=== PATIENT | female | born 1935 | race Caucasian/White ===

== ENCOUNTER → 2017-01-03 | Outpatient (CLI) | payer MEDICARE, OTHER ==
[~2017-01-03] MED LIST: MOBIC7.5 MG; MULTIVITAMIN1 CTB PO; OXYBUTYNIN CHLOR5 MG PO; VICODIN 5/500 505 MG PO
[2017-01-03 11:13] LABS: HEMATOCRIT 37.8 % (37.0-47.0); HEMOGLOBIN 12.7 g/dl (12.0-16.0); MEAN CELL VOLUME 97.9 fl (81.0-99.0); MEAN CORPUSCULAR HGB 32.9 pg (27.0-31.0); MEAN CORPUSCULAR HGB CONC 33.6 g/dl (33.0-37.0); MEAN PLATELET VOLUME 8.8 fl (9.6-12.3); RED BLOOD COUNT 3.86 10*6/uL (4.10-5.10); RED CELL DISTRI WIDTH 12.5 % (0-14.5); WHITE BLOOD COUNT 5.9 10*3/uL (4.8-10.8)
[2017-01-03 11:38] LABS: ALBUMIN 3.5 gm/dl (3.1-4.5); ALKALINE PHOSPHATASE 64 U/L (45-117); BILIRUBIN, TOTAL 0.3 mg/dl (0.2-1.0); BUN 28 mg/dl (7-24); CARBON DIOXIDE 31 mmol/L (21-32); CHLORIDE 102 mmol/L (98-107); CHOLESTEROL 185 mg/dL (<200); EST GLOM FILT AFRICAN AMERICAN > 60 ml/min; GLUCOSE 90 mg/dL (65-99); HDL CHOLESTEROL 80 mg/dl (40-60); LDL CHOLESTEROL 86 mg/dL (9-159); POTASSIUM 4.6 mmol/L (3.5-5.1); SGOT/AST 25 IU/L (3-35); SGPT/ALT 21 U/L (12-78); SODIUM 139 mmol/L (136-145); TOTAL PROTEIN 7.3 gm/dL (6.4-8.2); TRIGLYCERIDES 96 mg/dl (<150); VLDL CHOLESTEROL 19 mg/dL (6-40)
== END | disposition home or self-care (01) ==
LOC: LAB 10:45
PROVIDERS: Family Medicine
DX: E78.00 Pure hypercholesterolemia, unspecified (principal); E55.9 Vitamin D deficiency, unspecified; M25.511 Pain in right shoulder

== ENCOUNTER → 2017-02-19 | Outpatient (CLI) | payer MEDICARE, OTHER | END | disposition home or self-care (01) | LOC: MRI 07:59 | DX: R90.82 White matter disease, unspecified (principal); Z86.73 Personal history of transient ischemic attack (TIA), and cerebral infarction without residual deficits ==

== ENCOUNTER → 2017-09-11 | Outpatient (CLI) | payer MEDICARE, OTHER | END | disposition home or self-care (01) | LOC: WOUNDCARE 02:11 | DX: S81.851A Open bite, right lower leg, initial encounter (principal); W54.0XXA Bitten by dog, initial encounter; Y93.89 Activity, other specified; Y92.89 Other specified places as the place of occurrence of the external cause; Y99.8 Other external cause status ==

== ENCOUNTER → 2017-09-18 | Outpatient (CLI) | payer MEDICARE, OTHER | END | disposition home or self-care (01) | LOC: WOUNDCARE 00:44 | DX: S81.851A Open bite, right lower leg, initial encounter (principal); W54.0XXA Bitten by dog, initial encounter; Y93.89 Activity, other specified; Y92.89 Other specified places as the place of occurrence of the external cause; Y99.8 Other external cause status ==

== ENCOUNTER → 2017-09-25 | Outpatient (CLI) | payer MEDICARE, OTHER | END | disposition home or self-care (01) | LOC: WOUNDCARE 02:01 | DX: S81.851A Open bite, right lower leg, initial encounter (principal); W54.0XXA Bitten by dog, initial encounter; Y93.89 Activity, other specified; Y92.89 Other specified places as the place of occurrence of the external cause; Y99.8 Other external cause status ==

== ENCOUNTER → 2017-10-02 | Outpatient (CLI) | payer MEDICARE, OTHER | END | disposition home or self-care (01) | LOC: WOUNDCARE 02:59 | DX: S81.851D Open bite, right lower leg, subsequent encounter (principal); W54.0XXD Bitten by dog, subsequent encounter ==

== ENCOUNTER → 2017-10-09 | Outpatient (CLI) | payer MEDICARE, OTHER | END | disposition home or self-care (01) | LOC: WOUNDCARE 02:42 | DX: S81.851D Open bite, right lower leg, subsequent encounter (principal); W54.0XXD Bitten by dog, subsequent encounter ==

== ENCOUNTER → 2017-10-20 | Outpatient (CLI) | payer MEDICARE, OTHER | END | disposition home or self-care (01) | LOC: WOUNDCARE 08:27 | DX: L97.812 Non-pressure chronic ulcer of other part of right lower leg with fat layer exposed (principal) ==

== ENCOUNTER → 2017-10-30 | Outpatient (CLI) | payer MEDICARE, OTHER | END | disposition home or self-care (01) | LOC: WOUNDCARE 01:43 | DX: S81.851D Open bite, right lower leg, subsequent encounter (principal); G35 Multiple sclerosis; W54.0XXD Bitten by dog, subsequent encounter ==

== ENCOUNTER → 2017-11-25 | Outpatient (CLI) | payer MEDICARE, OTHER ==
[2017-11-25 10:21] LABS: HEMATOCRIT 37.1 % (37.0-47.0); HEMOGLOBIN 12.3 g/dl (12.0-16.0); MEAN CORPUSCULAR HGB 33.2 pg (27.0-31.0); MEAN CORPUSCULAR HGB CONC 33.2 g/dl (33.0-37.0); MEAN PLATELET VOLUME 8.8 fl (9.6-12.3); RED BLOOD COUNT 3.71 10*6/uL (4.10-5.10); RED CELL DISTRI WIDTH 12.6 % (0-14.5); WHITE BLOOD COUNT 4.2 10*3/uL (4.8-10.8)
[2017-11-25 10:51] LABS: ACT PARTIAL THROMBO TIME 24.8 SECONDS (20.8-31.5); ALBUMIN 3.7 gm/dl (3.1-4.5); ALKALINE PHOSPHATASE 76 U/L (45-117); BUN 18 mg/dl (7-24); CHLORIDE 106 mmol/L (98-107); CHOLESTEROL 175 mg/dL (<200); CREATININE 0.64 mg/dL (0.55-1.02); HDL CHOLESTEROL 81 mg/dl (40-60); INTERNATIONAL NORM RATIO 0.9 (2.0-3.5); LDL CHOLESTEROL 81 mg/dL (9-159); POTASSIUM 3.9 mmol/L (3.5-5.1); SGOT/AST 17 IU/L (3-35); SGPT/ALT 20 U/L (12-78); SODIUM 143 mmol/L (136-145); TOTAL PROTEIN 7.4 gm/dL (6.4-8.2); TRIGLYCERIDES 64 mg/dl (<150); VLDL CHOLESTEROL 13 mg/dL (6-40)
[2017-11-25 11:12] LABS: VITAMIN D, 25-HYDROXY 44.6 ng/mL (30-100)
[2017-11-27 06:15] LABS: HEPATITIS B SURFACE AG Negative (Negative); HEPATITIS C VIRUS ANTIBODY <0.1 s/co (0.0-0.9)
== END | disposition home or self-care (01) ==
LOC: LAB 09:49
PROVIDERS: Family Medicine
DX: Z01.818 Encounter for other preprocedural examination (principal); Z13.818 Encounter for screening for other digestive system disorders; R53.83 Other fatigue; E55.9 Vitamin D deficiency, unspecified; G35 Multiple sclerosis; Z79.899 Other long term (current) drug therapy; Z79.01 Long term (current) use of anticoagulants

== ENCOUNTER → 2019-04-28 | Outpatient (CLI) | payer MEDICARE, OTHER ==
[2019-04-28 14:58] LABS: HEMATOCRIT 36.5 % (37.0-47.0); HEMOGLOBIN 12.4 g/dl (12.0-16.0); MEAN CELL VOLUME 103.7 fl (81.0-99.0); MEAN CORPUSCULAR HGB 35.2 pg (27.0-31.0); MEAN PLATELET VOLUME 9.1 fl (9.6-12.3); RED BLOOD COUNT 3.52 10*6/uL (4.10-5.10); RED CELL DISTRI WIDTH 12.7 % (0-14.5)
[2019-04-28 15:15] LABS: ALBUMIN 3.7 gm/dl (3.1-4.5); ALKALINE PHOSPHATASE 65 U/L (45-117); BUN 28 mg/dl (7-24); CHLORIDE 107 mmol/L (98-107); CHOLESTEROL 176 mg/dL (<200); CREATININE 0.66 mg/dL (0.55-1.02); HDL CHOLESTEROL 80 mg/dl (40-60); LDL CHOLESTEROL 74 mg/dL (9-159); POTASSIUM 4.2 mmol/L (3.5-5.1); SGOT/AST 24 IU/L (3-35); SGPT/ALT 23 U/L (12-78); SODIUM 141 mmol/L (136-145); TOTAL PROTEIN 7.5 gm/dL (6.4-8.2); TRIGLYCERIDES 109 mg/dl (<150); VLDL CHOLESTEROL 22 mg/dL (6-40)
== END | disposition home or self-care (01) ==
LOC: LAB 14:34
PROVIDERS: Family Medicine
DX: E55.9 Vitamin D deficiency, unspecified (principal); E78.00 Pure hypercholesterolemia, unspecified

== ENCOUNTER → 2020-02-01 | Outpatient (CLI) | payer MEDICARE, OTHER ==
[2020-02-02 12:09] LABS: RHEUMATOID ARTHRITIS FACTOR <10.0 IU/mL (0.0-13.9)
== END | disposition home or self-care (01) ==
LOC: LAB 12:29
PROVIDERS: ATTEND Family Medicine
DX: M25.50 Pain in unspecified joint (principal); M79.10 Myalgia, unspecified site

== ENCOUNTER → 2020-07-18 | Outpatient (CLI) | payer MEDICARE | END | disposition home or self-care (01) | LOC: RESCLI 03:17 | PROVIDERS: ATTEND Internal Medicine Nephrology | DX: L90.0 Lichen sclerosus et atrophicus (principal); M81.0 Age-related osteoporosis without current pathological fracture; M19.90 Unspecified osteoarthritis, unspecified site; Z76.89 Persons encountering health services in other specified circumstances; Z79.899 Other long term (current) drug therapy; Z98.890 Other specified postprocedural states; Z88.8 Allergy status to other drugs, medicaments and biological substances ==

== ENCOUNTER → 2020-08-10 | Outpatient (CLI) | payer MEDICARE, OTHER ==
[2020-08-10 11:42] LABS: BASO % 0.3 % (0.0-1.0); EOS % 0.3 % (1.0-4.0); LYMPH # 1.1 10*3/uL (1.3-4.4); LYMPH % 32.2 % (27.0-41.0); MEAN CELL VOLUME 103.9 fl (81.0-99.0); MEAN CORPUSCULAR HGB 34.3 pg (27.0-31.0); MONO # 0.3 10*3/uL (0.1-1.0); MONO % 10.1 % (3.0-9.0); NEUT # 1.9 10*3/uL (2.3-7.9); NEUT % 56.8 % (47.0-73.0); PLATELET COUNT AUTOMATED 110 10*3/uL (130-400); RED BLOOD COUNT 3.56 10*6/uL (4.10-5.10); RED CELL DISTRI WIDTH 12.7 % (0-14.5); WHITE BLOOD COUNT 3.4 10*3/uL (4.8-10.8)
[2020-08-10 12:11] LABS: ALBUMIN 3.9 gm/dl (3.1-4.5); ALKALINE PHOSPHATASE 49 U/L (45-117); BILIRUBIN, DIRECT 0.2 mg/dL (0.0-0.2); BUN 22 mg/dl (7-24); CREATININE 0.76 mg/dL (0.55-1.02); SGOT/AST 18 IU/L (3-35); SGPT/ALT 20 U/L (12-78); TOTAL PROTEIN 7.6 gm/dL (6.4-8.2)
== END | disposition home or self-care (01) ==
LOC: LAB 11:03
PROVIDERS: ATTEND Dermatology
DX: Z51.81 Encounter for therapeutic drug level monitoring (principal)

== ENCOUNTER → 2020-09-26 | Outpatient (CLI) | payer MEDICARE, OTHER ==
[2020-09-26 12:08] LABS: BASO % 0.3 % (0.0-1.0); EOS % 0.9 % (1.0-4.0); HEMATOCRIT 34.7 % (37.0-47.0); LYMPH # 1.1 10*3/uL (1.3-4.4); LYMPH % 34.2 % (27.0-41.0); MEAN CELL VOLUME 104.2 fl (81.0-99.0); MEAN CORPUSCULAR HGB 34.5 pg (27.0-31.0); MEAN CORPUSCULAR HGB CONC 33.1 g/dl (33.0-37.0); MEAN PLATELET VOLUME 8.6 fl (9.6-12.3); MONO # 0.4 10*3/uL (0.1-1.0); MONO % 11.1 % (3.0-9.0); NEUT # 1.7 10*3/uL (2.3-7.9); NEUT % 53.2 % (47.0-73.0); PLATELET COUNT AUTOMATED 101 10*3/uL (130-400); RED BLOOD COUNT 3.33 10*6/uL (4.10-5.10); RED CELL DISTRI WIDTH 12.9 % (0-14.5); WHITE BLOOD COUNT 3.2 10*3/uL (4.8-10.8)
== END | disposition home or self-care (01) ==
LOC: RESCLI 03:30 → LAB 03:30 → RESCLI 07:08
PROVIDERS: ATTEND Internal Medicine
DX: D69.6 Thrombocytopenia, unspecified (principal)

== ENCOUNTER → 2020-10-10 | Outpatient (CLI) | payer MEDICARE, OTHER ==
[2020-10-10 14:28] LABS: ALBUMIN 3.9 gm/dl (3.1-4.5); ALKALINE PHOSPHATASE 53 U/L (45-117); BUN 19 mg/dl (7-24); CHLORIDE 107 mmol/L (98-107); CREATININE 0.63 mg/dL (0.55-1.02); SGOT/AST 24 IU/L (3-35); SGPT/ALT 22 U/L (12-78); SODIUM 139 mmol/L (136-145); TOTAL PROTEIN 7.4 gm/dL (6.4-8.2)
== END | disposition home or self-care (01) ==
LOC: LAB 13:29
PROVIDERS: ATTEND Nurse Practitioner Family
DX: T14.8XXA Other injury of unspecified body region, initial encounter (principal); W57.XXXA Bitten or stung by nonvenomous insect and other nonvenomous arthropods, initial encounter

== ENCOUNTER → 2020-10-29 | Outpatient (CLI) | payer MEDICARE, OTHER ==
[~2020-10-29] MED LIST changes: +ATARAX,VISTARIL10 MG PO
[2020-10-29 09:37] VITALS: BP 129/72
== END | disposition home or self-care (01) ==
LOC: INJECTION 09:00
PROVIDERS: ATTEND Internal Medicine
DX: M81.0 Age-related osteoporosis without current pathological fracture (principal); M19.90 Unspecified osteoarthritis, unspecified site

== ENCOUNTER → 2021-05-02 | Outpatient (CLI) | payer MEDICARE, OTHER ==
[~2021-05-02] MED LIST changes: +CALCIUM500 M1 PO; +PLAQUENIL200 MG PO; +VITAMIN B COMP1 EAC1 PO; +VITAMIN D325 MCG PO
== END | disposition home or self-care (01) ==
LOC: INJECTION 01:06
PROVIDERS: ATTEND Student in an Organized Health Care Education/Training Program
DX: M81.0 Age-related osteoporosis without current pathological fracture (principal)

== ENCOUNTER → 2021-10-29 | Outpatient (CLI) | payer MEDICARE, OTHER | LOC: RAD 12:43 | PROVIDERS: ATTEND Nurse Practitioner Family | DX: J98.11 Atelectasis (principal); R06.2 Wheezing; R09.89 Other specified symptoms and signs involving the circulatory and respiratory systems ==

== ENCOUNTER → 2022-03-31 | Outpatient (CLI) | payer MEDICARE, OTHER ==
[2022-03-31 15:28] LABS: BASO % 0.2 % (0.0-1.0); EOS # 0.1 10*3/uL (0.0-0.4); EOS % 1.2 % (1.0-4.0); HEMATOCRIT 36.7 % (37.0-47.0); LYMPH # 0.9 10*3/uL (1.3-4.4); LYMPH % 21.1 % (27.0-41.0); MEAN CELL VOLUME 103.4 fl (81.0-99.0); MEAN CORPUSCULAR HGB 33.5 pg (27.0-31.0); MEAN CORPUSCULAR HGB CONC 32.4 g/dl (33.0-37.0); MEAN PLATELET VOLUME 8.8 fl (9.6-12.3); MONO # 0.4 10*3/uL (0.1-1.0); MONO % 9.3 % (3.0-9.0); NEUT # 2.8 10*3/uL (2.3-7.9); PLATELET COUNT AUTOMATED 158 10*3/uL (130-400); RED BLOOD COUNT 3.55 10*6/uL (4.10-5.10); RED CELL DISTRI WIDTH 12.9 % (0-14.5); WHITE BLOOD COUNT 4.1 10*3/uL (4.8-10.8)
[2022-03-31 15:34] LABS: BILIRUBIN Negative (Negative); BLOOD Negative (Negative); CLARITY Clear (Clear); COLOR Yellow (Yellow); GLUCOSE Negative (Negative); KETONE Negative (Negative); LEUKO ESTERASE Trace (Negative); NITRITE Negative (Negative); PH 7.5 (4.5-8.0); SPECIFIC GRAVITY <= 1.005 (1.001-1.030); UROBILINOGEN 0.2 E.U./dl (0.0-1.0)
[2022-03-31 15:46] LABS: BUN 18 mg/dl (7-24); CHLORIDE 104 mmol/L (98-107); POTASSIUM 3.7 mmol/L (3.5-5.1); SGOT/AST 19 IU/L (3-35); SGPT/ALT 23 U/L (12-78); SODIUM 140 mmol/L (136-145)
[2022-03-31 15:51] LABS: ALKALINE PHOSPHATASE 96 U/L (45-117); TOTAL PROTEIN 7.7 gm/dL (6.4-8.2)
[2022-03-31 16:16] LABS: BACTERIA TRACE
== END | disposition home or self-care (01) ==
LOC: LAB 12:54 → US 13:00
PROVIDERS: ATTEND Urology
DX: N28.89 Other specified disorders of kidney and ureter (principal); I10 Essential (primary) hypertension; N32.3 Diverticulum of bladder; N28.1 Cyst of kidney, acquired; N39.0 Urinary tract infection, site not specified; M54.50 Low back pain, unspecified

== ENCOUNTER → 2022-04-29 | Outpatient (CLI) | payer MEDICARE, OTHER ==
[2022-04-29 11:44] LABS: ACT PARTIAL THROMBO TIME 26.2 SECONDS (20.0-32.1); INTERNATIONAL NORM RATIO 0.9 (2.0-3.5)
== END | disposition home or self-care (01) ==
LOC: LAB 10:41
PROVIDERS: ATTEND Urology
DX: Z01.818 Encounter for other preprocedural examination (principal); S22.000A Wedge compression fracture of unspecified thoracic vertebra, initial encounter for closed fracture; I49.1 Atrial premature depolarization; I25.10 Atherosclerotic heart disease of native coronary artery without angina pectoris; X58.XXXA Exposure to other specified factors, initial encounter; Y93.89 Activity, other specified; Y92.89 Other specified places as the place of occurrence of the external cause; Y99.8 Other external cause status

== ENCOUNTER → 2022-07-09 | Outpatient (CLI) | payer MEDICARE, OTHER ==
[~2022-07-09] MED LIST changes: +MAGNESIUM500 MG PO
== END | disposition home or self-care (01) ==
LOC: INJECTION 09:30
PROVIDERS: ATTEND Nurse Practitioner Family
DX: M81.0 Age-related osteoporosis without current pathological fracture (principal)

== ENCOUNTER → 2022-08-07 | Outpatient (CLI) | payer MEDICARE, OTHER | END | disposition home or self-care (01) | LOC: RAD 11:57 | PROVIDERS: ATTEND Chiropractor | DX: M16.11 Unilateral primary osteoarthritis, right hip (principal); M25.751 Osteophyte, right hip; M85.851 Other specified disorders of bone density and structure, right thigh ==

== ENCOUNTER → 2023-01-06 | Outpatient (CLI) | payer MEDICARE, OTHER ==
[2023-01-06 10:52] VITALS: BP 121/71
== END | disposition home or self-care (01) ==
LOC: INJECTION 00:53
PROVIDERS: ATTEND Nurse Practitioner Family
DX: M81.0 Age-related osteoporosis without current pathological fracture (principal); M19.90 Unspecified osteoarthritis, unspecified site; Z88.2 Allergy status to sulfonamides; Z88.5 Allergy status to narcotic agent; Z98.890 Other specified postprocedural states

== ENCOUNTER → 2023-04-10 | Outpatient (CLI) | payer MEDICARE, OTHER | END | disposition home or self-care (01) | LOC: RAD 14:03 | PROVIDERS: ATTEND Urology | DX: Z45.42 Encounter for adjustment and management of neurostimulator (principal) ==

== ENCOUNTER → 2023-04-14 | Outpatient (CLI) | payer MEDICARE, OTHER | END | disposition home or self-care (01) | LOC: US 02:07 | PROVIDERS: ATTEND Urology | DX: N32.3 Diverticulum of bladder (principal); N28.89 Other specified disorders of kidney and ureter ==

== ENCOUNTER → 2023-11-10 | Outpatient (CLI) | payer MEDICARE, OTHER ==
[~2023-11-10] MED LIST changes: +DENOSUMAB 60 MG/ML SYRINGE SC ONE
[2023-11-10 09:39] VITALS: BP 152/92
== END ==
LOC: INJECTION 00:33
PROVIDERS: ATTEND Urology
DX: M81.0 Age-related osteoporosis without current pathological fracture (principal); M47.816 Spondylosis without myelopathy or radiculopathy, lumbar region

== ENCOUNTER → 2023-11-17 | Outpatient (CLI) | payer MEDICARE, OTHER ==
[~2023-11-17] MED LIST changes: -DENOSUMAB 60 MG/ML SYRINGE SC ONE
== END | disposition home or self-care (01) ==
LOC: MAMMO 01:13
PROVIDERS: ATTEND Nurse Practitioner Family
DX: Z12.31 Encounter for screening mammogram for malignant neoplasm of breast (principal); N64.89 Other specified disorders of breast

== ENCOUNTER → 2023-12-30 | Outpatient (CLI) | payer MEDICARE, OTHER | END | disposition home or self-care (01) | LOC: LAB 15:40 | PROVIDERS: ATTEND Nurse Practitioner Family | DX: S81.801A Unspecified open wound, right lower leg, initial encounter (principal); A69.20 Lyme disease, unspecified; X58.XXXA Exposure to other specified factors, initial encounter; Y93.89 Activity, other specified; Y92.89 Other specified places as the place of occurrence of the external cause; Y99.8 Other external cause status ==

== ENCOUNTER → 2024-05-10 | Outpatient (CLI) | payer MEDICARE, OTHER ==
[~2024-05-10] MED LIST changes: +DENOSUMAB 60 MG/ML SYRINGE SC ONE
== END | disposition home or self-care (01) ==
LOC: INJECTION 02:07
PROVIDERS: ATTEND Nurse Practitioner Family
DX: M81.0 Age-related osteoporosis without current pathological fracture (principal); I10 Essential (primary) hypertension; Z88.8 Allergy status to other drugs, medicaments and biological substances; Z88.5 Allergy status to narcotic agent; Z88.6 Allergy status to analgesic agent; Z88.2 Allergy status to sulfonamides

== ENCOUNTER → 2024-06-11 | Outpatient (CLI) | payer MEDICARE, OTHER ==
[~2024-06-11] MED LIST changes: -DENOSUMAB 60 MG/ML SYRINGE SC ONE
[2024-06-11 09:22] LABS: BASO % 0.6 % (0.0-1.0); EOS % 0.9 % (1.0-4.0); HEMATOCRIT 37.6 % (37.0-47.0); MEAN CELL VOLUME 102.5 fl (81.0-99.0); MEAN CORPUSCULAR HGB 33.5 pg (27.0-31.0); MEAN CORPUSCULAR HGB CONC 32.7 g/dl (33.0-37.0); MEAN PLATELET VOLUME 8.5 fl (9.6-12.3); MONO # 0.3 10*3/uL (0.1-1.0); MONO % 8.8 % (3.0-9.0); NEUT # 2.3 10*3/uL (2.3-7.9); NEUT % 69.3 % (47.0-73.0); PLATELET COUNT AUTOMATED 148 10*3/uL (130-400); RED BLOOD COUNT 3.67 10*6/uL (4.10-5.10); RED CELL DISTRI WIDTH 12.3 % (0-14.5); WHITE BLOOD COUNT 3.3 10*3/uL (4.8-10.8)
[2024-06-11 09:52] LABS: ALKALINE PHOSPHATASE 60 U/L (46-116); BUN 19 mg/dl (9-23); CHLORIDE 107 mmol/L (98-107); CHOLESTEROL 177 mg/dL (<200); LDL CHOLESTEROL 85 mg/dL (9-159); SGPT/ALT 12 U/L (5-49); TOTAL PROTEIN 6.9 gm/dL (6.0-8.0); TRIGLYCERIDES 70 mg/dl (<150)
== END | disposition home or self-care (01) ==
LOC: LAB 08:40
PROVIDERS: ATTEND Nurse Practitioner Family
DX: Z12.31 Encounter for screening mammogram for malignant neoplasm of breast (principal); Z01.818 Encounter for other preprocedural examination; M81.0 Age-related osteoporosis without current pathological fracture; E78.5 Hyperlipidemia, unspecified; R60.0 Localized edema; N39.498 Other specified urinary incontinence; F41.9 Anxiety disorder, unspecified; L90.0 Lichen sclerosus et atrophicus; Z79.899 Other long term (current) drug therapy

== ENCOUNTER → 2024-11-08 | Outpatient (CLI) | payer MEDICARE, OTHER ==
[~2024-11-08] MED LIST changes: +CEPHALEXIN500 M1 PO
== END | disposition home or self-care (01) ==
LOC: LAB 16:47
PROVIDERS: ATTEND Nurse Practitioner Family
DX: R30.0 Dysuria (principal)

== ENCOUNTER 2024-11-30 10:46 | Inpatient (IN) | payer MEDICARE, OTHER ==
[~2024-11-30] VITALS: Ht 162.5 cm; Wt 70.4 kg
[2024-11-30 11:04] VITALS: BP 148/90
[2024-11-30] MEDS ORDERED: Ondansetron Hydrochloride 4 MG/2 ML VIAL IV ONE (11:30)
[2024-11-30] MEDS ORDERED: SODIUM CHLORIDE 0.9% 500 ML IV ONE (11:30)
[2024-11-30 11:42] LABS: BASO # 0.0 10*3/uL (0.0-0.1); BASO % 0.4 % (0.0-1.0); EOS # 0.0 10*3/uL (0.0-0.4); EOS % 0.2 % (1.0-4.0); MEAN CELL VOLUME 100.0 fl (81.0-99.0); MEAN CORPUSCULAR HGB 32.9 pg (27.0-31.0); MEAN PLATELET VOLUME 8.5 fl (9.6-12.3); MONO # 0.5 10*3/uL (0.1-1.0); MONO % 7.9 % (3.0-9.0); NEUT # 4.6 10*3/uL (2.3-7.9); NEUT % 80.7 % (47.0-73.0); NUCLEATED RED BLOOD CELL 0.0 % (0.0-0.0); NUCLEATED RED BLOOD CELL 0.0 10*3/uL (0.0-0.0); PLATELET COUNT AUTOMATED 156 10*3/uL (130-400); RED CELL DISTRI WIDTH 12.4 % (0-14.5)
[2024-11-30 12:03] LABS: BILIRUBIN Negative (Negative); BLOOD Negative (Negative); CLARITY Clear (Clear); COLOR Yellow (Yellow); KETONE 1+ (Negative); LEUKO ESTERASE Negative (Negative); NITRITE Negative (Negative); SPECIFIC GRAVITY 1.015 (1.001-1.030); UROBILINOGEN 1.0 E.U./dl (0.0-1.0)
[2024-11-30 12:04] LABS: PH 8.5 (4.5-8.0)
[2024-11-30 12:11] LABS: BUN 14 mg/dl (9-23); CPK 251 U/L (34-171)
[2024-11-30 12:12] LABS: RBC 0-2 rbc/hpf (0-2); WBC 0-2 wbc/hpf (0-5)
[2024-11-30] MEDS ORDERED: BISACODYL 5 MG TAB PO PRN (14:05)
[2024-11-30] MEDS ORDERED: BISACODYL 10 MG SUPP R PRN (14:05)
[2024-11-30] MEDS ORDERED: Ondansetron Hydrochloride 4 MG/2 ML VIAL IV PRN (14:05)
[2024-11-30] MEDS ORDERED: Acetaminophen/Hydrocodone 5 MG/325 MG TABLET PO PRN (14:15)
[2024-11-30 15:00] VITALS: BP 144/85
[2024-11-30] MEDS ORDERED: Cyclobenzaprine Hydrochlorid 10 MG TAB PO PRN (15:20)
[2024-11-30 20:00] VITALS: BP 106/75; BP 128/59
[2024-12-01] VITALS: BP 124/73
[2024-12-01 06:36] LABS: BASO # 0.0 10*3/uL (0.0-0.1); BASO % 0.2 % (0.0-1.0); EOS # 0.1 10*3/uL (0.0-0.4); EOS % 1.8 % (1.0-4.0); MEAN CELL VOLUME 101.7 fl (81.0-99.0); MEAN CORPUSCULAR HGB 33.3 pg (27.0-31.0); MEAN PLATELET VOLUME 8.4 fl (9.6-12.3); MONO # 0.5 10*3/uL (0.1-1.0); MONO % 11.5 % (3.0-9.0); NEUT # 3.2 10*3/uL (2.3-7.9); NEUT % 71.7 % (47.0-73.0); NUCLEATED RED BLOOD CELL 0.0 % (0.0-0.0); NUCLEATED RED BLOOD CELL 0.0 10*3/uL (0.0-0.0); PLATELET COUNT AUTOMATED 134 10*3/uL (130-400); RED CELL DISTRI WIDTH 12.4 % (0-14.5)
[2024-12-01 07:04] LABS: BUN 12 mg/dl (9-23); SGPT/ALT 12 U/L (5-49)
[2024-12-01 08:00] VITALS: BP 139/82
[2024-12-01] MEDS ORDERED: Cyclobenzaprine Hydrochlorid 10 MG TAB PO PRN (09:39)
[2024-12-01 12:00] VITALS: BP 113/68
[2024-12-01] MEDS ORDERED: ACETAMINOPHEN 325 MG TAB PO PRN (12:20)
[2024-12-01 16:00] VITALS: BP 125/69
[2024-12-01 20:00] VITALS: BP 125/67
[2024-12-02] VITALS: BP 115/70
[2024-12-02] MEDS ORDERED: PSYLLIUM 1 PCK PACKET PO SCH (05:00)
[2024-12-02 06:00] LABS: BASO # 0.0 10*3/uL (0.0-0.1); BASO % 0.2 % (0.0-1.0); EOS # 0.1 10*3/uL (0.0-0.4); EOS % 2.1 % (1.0-4.0); MEAN CELL VOLUME 99.7 fl (81.0-99.0); MEAN CORPUSCULAR HGB 33.1 pg (27.0-31.0); MEAN PLATELET VOLUME 9.1 fl (9.6-12.3); MONO # 0.4 10*3/uL (0.1-1.0); MONO % 8.9 % (3.0-9.0); NEUT # 3.7 10*3/uL (2.3-7.9); NEUT % 78.4 % (47.0-73.0); NUCLEATED RED BLOOD CELL 0.0 % (0.0-0.0); NUCLEATED RED BLOOD CELL 0.0 10*3/uL (0.0-0.0); PLATELET COUNT AUTOMATED 143 10*3/uL (130-400); RED CELL DISTRI WIDTH 12.5 % (0-14.5)
[2024-12-02 08:00] VITALS: BP 118/82
[2024-12-02 12:00] VITALS: BP 115/73
[2024-12-02 16:00] VITALS: BP 121/64
[2024-12-02 20:00] VITALS: BP 127/85
[2024-12-03] VITALS: BP 134/84
[2024-12-03 08:00] VITALS: BP 124/78
[2024-12-03 12:00] VITALS: BP 110/83
[2024-12-03 16:00] VITALS: BP 138/68
[2024-12-03 20:00] VITALS: BP 120/84
[2024-12-04] VITALS: BP 134/84
[2024-12-04 08:00] VITALS: BP 106/86
[2024-12-04] MEDS ORDERED: MAGNESIUM OXIDE 400 MG TAB PO SCH (10:00)
[2024-12-04 12:00] VITALS: BP 123/83
[2024-12-04 16:00] VITALS: BP 152/93
[2024-12-04 20:00] VITALS: BP 143/85
[2024-12-05] VITALS: BP 157/89
[2024-12-05 08:00] VITALS: BP 151/68
[2024-12-05] MEDS ORDERED: LAXATIVE5 MG PO (11:44)
[2024-12-05] MEDS ORDERED: CYCLOBENZAPRINE5 M3 PO (11:44)
[2024-12-05] MEDS ORDERED: METAMUCIL FIBE3.4 GM PO (11:44)
[2024-12-05] MEDS ORDERED: MAGNESIUM OXID400 MG PO (11:44)
[2024-12-05 12:00] VITALS: BP 148/63
== END 2024-12-05 15:45 | DRG 605 ==
LOC: ED 10:46 → 5E 13:53 → EDHOLD 13:53 → 5E 14:58
PROVIDERS: Emergency Medicine; ADMIT Internal Medicine; ATTEND Internal Medicine
DX: S30.0XXA Contusion of lower back and pelvis, initial encounter (principal); T79.6XXA Traumatic ischemia of muscle, initial encounter; S09.90XA Unspecified injury of head, initial encounter; S20.219A Contusion of unspecified front wall of thorax, initial encounter; R91.1 Solitary pulmonary nodule; Z66 Do not resuscitate; M81.0 Age-related osteoporosis without current pathological fracture; Z96.641 Presence of right artificial hip joint; M62.830 Muscle spasm of back; D53.9 Nutritional anemia, unspecified; D72.810 Lymphocytopenia; W19.XXXA Unspecified fall, initial encounter; Z88.2 Allergy status to sulfonamides; Z88.8 Allergy status to other drugs, medicaments and biological substances; Z89.429 Acquired absence of other toe(s), unspecified side; Z82.49 Family history of ischemic heart disease and other diseases of the circulatory system; Z81.8 Family history of other mental and behavioral disorders; Y93.89 Activity, other specified; Y92.89 Other specified places as the place of occurrence of the external cause; Y99.8 Other external cause status

== ENCOUNTER → 2025-01-19 | Day surgery (SDC) | payer MEDICARE, OTHER ==
[2025-01-19] VITALS (11 sets, daily range): BP systolic 123–164; BP diastolic 72–91
[~2025-01-19] MED LIST changes: +AZO BLADDER CO300 MG PO; +CANDICIDAL CAP1 EACH PO; +CYCLOBENZAPRINE5 M3 PO; +LAXATIVE5 MG PO; +Lidocaine Hydrochloride 5 ML AMP ONE; +MAGNESIUM OXID400 MG PO; +MAGNESIUM100 M1 PO; +METAMUCIL FIBE3.4 GM PO; +PROBIOTIC1 EAC7 PO; +SODIUM BICARBONATE 4.2% 5 ML VIAL ONE; +TYLENOL EXTRA500 MG PO
[2025-01-19 08:28] LABS: ACT PARTIAL THROMBO TIME 26.2 SECONDS (20.0-32.1)
== END | disposition home or self-care (01) ==
LOC: SDC 00:26
PROVIDERS: ATTEND Internal Medicine Critical Care Medicine
DX: C7A.090 Malignant carcinoid tumor of the bronchus and lung (principal); R06.00 Dyspnea, unspecified; Z98.890 Other specified postprocedural states; Z88.2 Allergy status to sulfonamides; Z88.8 Allergy status to other drugs, medicaments and biological substances; Z79.899 Other long term (current) drug therapy; Z79.01 Long term (current) use of anticoagulants